=== PATIENT | male | born 1965 | race Native Hawaiian/Other Pacific Islander ===

== ENCOUNTER 2021-10-15 00:40 | Emergency (ER) | payer MEDICAID ==
[~2021-10-15] VITALS: Ht 167.6 cm; Wt 81.6 kg
[2021-10-15 01:13] VITALS: BP 144/78
--- NOTE | 2021-10-15 01:19 | NUR ---
TO LOBBY FOLLOWING TRIAGE
--- NOTE | 2021-10-15 02:45 | NUR ---
ERMD AT BEDSIDE EXAMINING PT
--- NOTE | 2021-10-15 02:55 | NUR ---
56 Y/O MALE BIBS FROM HOME, C/O INSOMNIA X4 DAYS. PT STATES THAT WHEN HE LAYS DOWN HE IS STILL UNABLE TO SLEEP. PT DENIES N/V/D, COUGH, CP, SOB, OR FEVER/CHILLS. SKIN IS PINK/EARM/DRY. A/OX4, ULABORED BREATHING, AMBULATORY. DENIES RECEREATIONAL DRUGS OR ALCOHOL. NO TRAUMA NOTED. PT IS SPEAKING IN FULL SENTENCES. DENIES PMH/RX NKDA
[2021-10-15] MEDS ORDERED: BEN50 PO (03:06)
[2021-10-15 03:11] VITALS: BP 132/70
--- NOTE | 2021-10-15 03:12 | NUR ---
Patient discharged with v/s stable. Written and verbal after care instructions given and explained. Patient alert, oriented and verbalized understanding of instructions. Ambulatory with steady gait. All questions addressed prior to discharge. ID band removed. Patient advised to follow up with PMD. Rx of BENADRYL given. Patient educated on indication of medication including possible reaction and side effects. Opportunity to ask questions provided and answered. VSS, A/OX4, UNLABORED BREATHING, AMBULATORY, AND CALM DEMEANOR.
== END 2021-10-15 03:12 | disposition home or self-care (01) ==
LOC: MED 00:40
DX: G47.00 Insomnia, unspecified (principal); Z90.49 Acquired absence of other specified parts of digestive tract
CPT/HCPCS: 99282